=== PATIENT | male | born 1970 | race Asian ===

== ENCOUNTER 2024-01-06 14:47 | Inpatient (IN) | payer OTHER ==
[~2024-01-06] VITALS: Ht 165.1 cm; Wt 57.6 kg
[~2024-01-06 14:47] MED LIST: ACETAMINOPHEN 1000 MG/100 ML IV ONE; DEXAMETHASONE SOD PHOS INJ 4 MG/ML SDV ONE; FAMOTIDINE 20 MG/2 ML VIAL IV ONE; LIDOCAINE HCL 2% LOCAL INJ 5 ML SDV VIAL INJ ONE; ONDANSETRON HCL INJ 2MG/ML 2ML 2 MG/ML VIAL ONE; PROPOFOL IV EMULSION 10 MG/ML 20 ML VIAL ONE; SEVOFLURANE INHAL SOLN 250 ML PEN BTL ONE
[2024-01-06 14:55] VITALS: TEMP 98.1
[2024-01-06 16:12] VITALS: PULSE 67; RESP 18
[2024-01-06] MEDS: HYDRALAZINE HCL 20 MG/ML VIAL IV ONE (16:33)
[2024-01-06] MEDS: ONDANSETRON HCL INJ 2MG/ML 2ML 2 MG/ML VIAL IV PRN (16:33)
[2024-01-06] MEDS ORDERED: ONDANSETRON HCL INJ 2MG/ML 2ML 2 MG/ML VIAL ONE (16:34)
[2024-01-06] MEDS: ACETAMINOPHEN 325 MG TAB PO ONE (16:34)
[2024-01-06] MEDS ORDERED: NIFEDIPINE CR 30 MG TAB PO SCH (17:00)
[2024-01-06] MEDS ORDERED: CARVEDILOL 3.125 MG TAB PO SCH (17:00)
[2024-01-06 18:18] VITALS: BP 140/85; PULSE 60; RESP 19; TEMP 98.5; O2SAT 100
[2024-01-06 18:37] VITALS: BP 140/85; PULSE 60; RESP 19; TEMP 98.5; O2SAT 100
[2024-01-06] MEDS ORDERED: ACETAMINOPHEN 325 MG TAB PO PRN (18:45)
[2024-01-06 20:00] VITALS: BP 155/95; PULSE 75; RESP 18; TEMP 98.1; O2SAT 100
[2024-01-06] MEDS: NIFEDIPINE CR 30 MG TAB PO SCH (22:58)
[2024-01-07] VITALS (9 sets, daily range): BP systolic 114–140; BP diastolic 79–95; PULSE 55–79; RESP 16–19; TEMP 97.5–98.5; O2SAT 97–100
[2024-01-07 00:09] LABS: TROPONIN I 0.005 ng/mL (0-0.300)
[2024-01-07 07:40] LABS: BASOPHILS # (AUTO) 0.1 (0.0-0.1); BASOPHILS % 1.2 % (0.0-1.0); EOSINOPHILS # (AUTO) 0.2 (0.0-0.4); EOSINOPHILS % 3.6 % (0.0-6.0); HEMATOCRIT 50.6 % (38.2-49.6); HEMOGLOBIN 16.4 g/dL (14.0-18.0); LYMPHOCYTES # (AUTO) 1.7 (1.0-3.2); LYMPHOCYTES % 25.5 % (18.0-39.1); MEAN CORPUSCULAR HGB CONC 32.4 g/dL (31-35); MEAN CORPUSCULAR VOLUME 92.5 fL (81-99); MONOCYTES # (AUTO) 0.7 (0.2-0.8); MONOCYTES % 10.1 % (4.4-11.3); NEUTROPHILS # (AUTO) 3.9 (2.1-6.9); NEUTROPHILS % 59.3 % (38.7-80.0); PLATELET COUNT 269 x10e3/uL (140-360); RED BLOOD COUNT 5.47 x10e6/uL (4.3-5.7); RED CELL DISTRIBUTION WIDTH 12.5 % (11.7-14.4); WHITE BLOOD COUNT 6.62 x10e3/uL (4.8-10.8)
[2024-01-07 08:18] LABS: ANION GAP 16.2 mmol/L (8-16); CALCIUM 9.6 mg/dL (8.4-10.2); CREATININE, SERUM 1.22 mg/dL (0.72-1.25); PHOSPHORUS 3.5 MG/DL (2.3-4.7); POTASSIUM 4.2 mmol/L (3.5-5.1)
[2024-01-07 08:42] LABS: TROPONIN I 0.005 ng/mL (0-0.300)
[2024-01-07] MEDS ORDERED: MELATONIN 5 MG TABLET PO PRN (08:45)
[2024-01-07] MEDS ORDERED: ONDANSETRON HCL INJ 2MG/ML 2ML 2 MG/ML VIAL IV PRN (08:45)
[2024-01-07] MEDS ORDERED: DOCUSATE SODIUM 100 MG CAP PO PRN (08:45)
[2024-01-07] MEDS ORDERED: DEXTROSE 50% SYRINGE 50 ML IV PRN (08:45)
[2024-01-07] MEDS ORDERED: SIMETHICONE 80 MG CHEW PO PRN (08:45)
[2024-01-07] MEDS ORDERED: HYDRALAZINE HCL 20 MG/ML VIAL IV PRN (08:45)
[2024-01-07] MEDS ORDERED: DIPHENHYDRAMINE HCL 25 MG CAP PO PRN (08:45)
[2024-01-07] MEDS ORDERED: LIDOCAINE 4% PATCH TP PRN (08:45)
[2024-01-07] MEDS ORDERED: ALBUTEROL/IPRATROPIUM 3 ML NEB NEB PRN (08:45)
[2024-01-07] MEDS ORDERED: POTASSIUM CHLORIDE 20 MEQ TAB CR PO PRN (08:45)
[2024-01-07] MEDS ORDERED: BENZONATATE 100 MG CAP PO PRN (08:45)
[2024-01-07] MEDS: CARVEDILOL 3.125 MG TAB PO SCH ×2 (09:00→23:09)
[2024-01-07] MEDS: ACETAMINOPHEN 325 MG TAB PO PRN (11:43)
[2024-01-07] MEDS: SODIUM CHLORIDE 0.9% 1000ML 1,000 ML IV SCH (13:57)
[2024-01-07 15:13] LABS: TROPONIN I 0.001 ng/mL (0-0.300)
[2024-01-07] MEDS ORDERED: IOPAMIDOL 370 MG/ML 100 ML INFUS..BTL INJ ONE (15:34)
[2024-01-07] MEDS: NIFEDIPINE CR 30 MG TAB PO SCH (17:32)
[2024-01-07] MEDS: ENOXAPARIN SOD INJ 40 MG/0.4 ML SYR SC SCH (17:32)
[2024-01-08] VITALS: BP 110/86; PULSE 56; RESP 18; TEMP 97.6; O2SAT 100
[2024-01-08 04:00] VITALS: BP 130/81; PULSE 67; RESP 18; TEMP 97.5; O2SAT 100
[2024-01-08 05:24] LABS: BASOPHILS # (AUTO) 0.1 (0.0-0.1); BASOPHILS % 1.3 % (0.0-1.0); EOSINOPHILS # (AUTO) 0.3 (0.0-0.4); EOSINOPHILS % 4.6 % (0.0-6.0); HEMATOCRIT 46.5 % (38.2-49.6); HEMOGLOBIN 14.9 g/dL (14.0-18.0); LYMPHOCYTES # (AUTO) 2.5 (1.0-3.2); LYMPHOCYTES % 35.6 % (18.0-39.1); MEAN CORPUSCULAR VOLUME 93.8 fL (81-99); MONOCYTES # (AUTO) 0.6 (0.2-0.8); MONOCYTES % 8.7 % (4.4-11.3); NEUTROPHILS # (AUTO) 3.5 (2.1-6.9); NEUTROPHILS % 49.5 % (38.7-80.0); PLATELET COUNT 237 x10e3/uL (140-360); RED BLOOD COUNT 4.96 x10e6/uL (4.3-5.7); RED CELL DISTRIBUTION WIDTH 12.3 % (11.7-14.4)
[2024-01-08 05:46] LABS: CALCIUM 9.2 mg/dL (8.4-10.2); CREATININE, SERUM 1.26 mg/dL (0.72-1.25)
[2024-01-08 08:00] VITALS: BP 126/84; PULSE 67; RESP 20; TEMP 97.7; O2SAT 100
[2024-01-08] MEDS: PANTOPRAZOLE SOD 40 MG TABEC PO SCH (08:48)
[2024-01-08 09:00] VITALS: BP 126/84; PULSE 67; RESP 20; TEMP 97.7; O2SAT 100
[2024-01-08 12:00] VITALS: BP 111/82; PULSE 68; RESP 19; TEMP 98; O2SAT 100
[2024-01-08 12:20] VITALS: PULSE 67; RESP 16; O2SAT 100
[2024-01-08] MEDS ORDERED: CARVEDILOL 12.5 MG TAB PO SCH (21:00)
== END 2024-01-08 16:14 | disposition home or self-care (01) | DRG 305 ==
LOC: FSED 15:04 → ERHOLD 16:22 → MED/SURG 19:29
PROVIDERS: ADMIT Internal Medicine; ATTEND Internal Medicine
DX: I10 Essential (primary) hypertension (principal); N17.9 Acute kidney failure, unspecified; I16.0 Hypertensive urgency; E78.00 Pure hypercholesterolemia, unspecified; R07.89 Other chest pain
CPT/HCPCS: 36415; 70450; 71046; 71275; 80048; 80053; 80061; 80307; 81003; 82550; 83735; 84100; 84484; 85025; 85379; 93005; 93017; 93306; 94799; 99284; J0360; J1650; J2405; J7030; Q9967